=== PATIENT | female | born 1945 | race Two or more races ===

== ENCOUNTER 2016-09-27 14:15 | Outpatient (CLI) | payer MEDICARE, OTHER ==
[2016-09-27] MEDS ORDERED: ANASTROZOLE1 MG PO (15:16)
[2016-09-27] MEDS ORDERED: VITAMIN D1000 UNI1 ORAL (15:16)
[2016-09-27] MEDS ORDERED: DEXILANT60 MG ORAL (15:16)
[2016-09-27] MEDS ORDERED: LORAZEPAM0.5 MG ORAL (15:16)
[2016-09-27] MEDS ORDERED: FLONASE ALLERG9.9 ML NS (15:16)
[2016-09-27] MEDS ORDERED: ATORVASTATIN CA10 MG ORAL (15:16)
[2016-09-27] MEDS ORDERED: trintellix (15:16)
[2016-09-27] MEDS ORDERED: ATELVIA35 MG ORAL (15:16)
[2016-09-27] MEDS ORDERED: TOPROL XL100 MG ORAL (15:16)
[2016-09-27] MEDS ORDERED: CELEBREX200 MG ORAL (15:16)
[2016-09-27] MEDS ORDERED: QVAR7.3 GM INH (15:16)
--- NOTE | 2016-09-27 15:19 | GI Initial Consult Note ---
Giselle Mistry N.PTammy 09/27/16 1519: History of Present Illness General Date patient seen: Sep 27, 2016 Time patient seen: 14:00 Referring physician: LAVELLE Reason for Consultation: RECTAL BLEED Present Illness HPI 71 year old female patient presents today with c/o of rectal bleed with bloody stools, fatigue, and 7 lbs weight loss in the past few months. In addition the patient c/o of abdominal bloating. Patient has CEA elevation 5.6 during last draw x 6 months. Denies any changes in dietary habits. Home Meds Reported Medications Beclomethasone Dipropionate 40MCG Oral Inh (QVAR 40*) 7.3 Gm Aer.w.adap, 1 PUFF INH TWICE A DAY, GM 0 Refills 09/27/16 Risedronate Sodium (ATELVIA) 35 Mg Tablet.dr, 35 MG ORAL ONCE A WEEK, TAB 09/27/16 Fluticasone Propionate (Flonase Allergy Relief) 9.9 Ml [place].susp, 9.9 ML NS 09/27/16 Cholecalciferol (Vitamin D3)* (VITAMIN D*) 1,000 Unit Tablet, 5000 UNIT ORAL DAILY, #30 TAB 09/27/16 Metoprolol Succinate* (TOPROL XL*) 100 Mg Tab.er.24h, 100 MG ORAL DAILY, TAB 0 Refills 09/27/16 Atorvastatin Calcium* (LIPITOR*) 10 Mg Tablet, 10 MG ORAL BEDTIME, TAB 09/27/16 Anastrozole* (ARIMIDEX*) 1 Mg Tablet, 1 MG PO DAILY, TAB 09/27/16 Lorazepam* (LORAZEPAM*) 0.5 Mg Tablet, 0.5 MG ORAL THREE TIMES A DAY, TAB 09/27/16 [trintellix] No Conflict Check, 10 09/27/16 Dexlansoprazole (Dexilant) 60 Mg Grady.bp, 60 MG ORAL DAILY, CAP 09/27/16 Celecoxib* (CELEBREX*) 200 Mg Capsule, 200 MG ORAL DAILY, CAP 09/27/16 Med list reviewed/reconciled: Yes Patient History History Provided By: Patient PMH Narrative HTN GERD Depression Elevated Cholesterol Breast CA PSHx Splenectomy x 20 years Pertinent Family History: none Social History: Denies: alcohol use, drug use, other, smoking Review of Systems All Other Systems: negative except mentioned in HPI Physical Exam T 98.3 BP 123/65 P 59 95 RA WT 142.8 lbs Sp02 EP Interpretation: reviewed General Appearance: normal inspection, well appearing, no apparent distress, alert Head: normocephalic EENT: PERRL/EOMI, normal ENT inspection, TMs normal Neck: normal inspection, full range of motion, supple Respiratory: normal inspection, chest non-tender, lungs clear, normal breath sounds Cardiovascular: normal rate Gastrointestinal: normal inspection, non tender, soft, normal bowel sounds Rectal: normal exam, deferred Genitourinary: normal inspection, no CVA tenderness Musculoskeletal: normal inspection, back normal Neurologic: normal inspection, alert, oriented x3, responsive Psychiatric: normal inspection, judgement/insight normal, memory normal Skin: normal inspection, normal color, no rash, warm/dry, palpation normal, well hydrated, normal turgor Lymphatic: normal inspection, no adenopathy GI: Plan Problems: (1) Elevated CEA (2) HTN (hypertension) (3) GERD (gastroesophageal reflux disease) (4) Elevated cholesterol (5) Breast CA (6) Colonoscopy planned (7) Rectal bleed Plan EGD/colonoscopy scheduled 10/04/16. - CLD and TriLyte prep instructions given. repeat CEA on day of procedure. Seen with Dr. Schafer. Thank you for referring this patient, we will follow. RANDY SCHAFER 09/29/16 1027: History of Present Illness Present Illness Home Meds Reported Medications Beclomethasone Dipropionate 40MCG Oral Inh (QVAR 40*) 7.3 Gm Aer.w.adap, 1 PUFF INH TWICE A DAY, GM 0 Refills 09/27/16 Risedronate Sodium (ATELVIA) 35 Mg Tablet.dr, 35 MG ORAL ONCE A WEEK, TAB 09/27/16 Fluticasone Propionate (Flonase Allergy Relief) 9.9 Ml [place].susp, 9.9 ML NS 09/27/16 Cholecalciferol (Vitamin D3)* (VITAMIN D*) 1,000 Unit Tablet, 5000 UNIT ORAL DAILY, #30 TAB 09/27/16 Metoprolol Succinate* (TOPROL XL*) 100 Mg Tab.er.24h, 100 MG ORAL DAILY, TAB 0 Refills 09/27/16 Atorvastatin Calcium* (LIPITOR*) 10 Mg Tablet, 10 MG ORAL BEDTIME, TAB 09/27/16 Anastrozole* (ARIMIDEX*) 1 Mg Tablet, 1 MG PO DAILY, TAB 09/27/16 Lorazepam* (LORAZEPAM*) 0.5 Mg Tablet, 0.5 MG ORAL THREE TIMES A DAY, TAB 09/27/16 [trintellix] No Conflict Check, 10 09/27/16 Dexlansoprazole (Dexilant) 60 Mg Cap.bp, 60 MG ORAL DAILY, CAP 09/27/16 Celecoxib* (CELEBREX*) 200 Mg Capsule, 200 MG ORAL DAILY, CAP 09/27/16 GI: Plan Plan The patient was seen and examined at bedside and all new and available data was reviewed in the patients chart. I agree with the above findings, impression and plan. (Patient seen earlier today. Signature stamp does not reflect patient encounter time.). -Giselle Bob MD, N.P. Sep 27, 2016 15:19 RANDY SCHAFER Sep 29, 2016 10:27
== END 2016-09-27 15:00 | disposition home or self-care (01) ==
LOC: PAN 14:15
DX: K21.9 Gastro-esophageal reflux disease without esophagitis (principal); I10 Essential (primary) hypertension; E78.00 Pure hypercholesterolemia, unspecified; K62.5 Hemorrhage of anus and rectum; Z85.3 Personal history of malignant neoplasm of breast; R97.0 Elevated carcinoembryonic antigen [CEA]; Z90.81 Acquired absence of spleen
CPT/HCPCS: 99201

== ENCOUNTER 2016-10-04 09:10 | Day surgery (SDC) | payer MEDICARE, OTHER ==
[2016-10-04] VITALS (9 sets, daily range): BP systolic 124–150; BP diastolic 55–78
[~2016-10-04] VITALS: Ht 152.4 cm; Wt 66.7 kg
--- NOTE | 2016-10-04 06:02 | Anethesia Preoperative Eval ---
Anesthesia Pre-op PMH/ROS General Date of Evaluation: Oct 04, 2016 Time of Evaluation: 06:01 Anesthesiologist: levi ASA Score: ASA 3 Mallampati Score Class I : Soft palate, uvula, fauces, pillars visible Class II: Soft palate, uvula, fauces visible Class III: Soft palate, base of uvula visible Class IV: Only hard plate visible Mallampati Classification: Class II Surgeon: clayton Diagnosis: abnormal CEA Surgical Procedure: egd/colonoscopy Anesthesia History: none Family History: no anesthesia problems Allergies: Coded Allergies: No Known Allergies (Unverified , 10/03/16) Medications: see eMAR Past Medical History Cardiovascular: Reports: HTN Endocrine: Reports: DM Anesthesia Pre-op Phys. Exam Physician Exam Last Vital Signs Date Time Temp Pulse Resp B/P (MAP) Pulse Ox O2 Delivery O2 Flow Rate FiO2 10/04/16 09:55 98.4 62 18 143/71 98 Room Air Constitutional: NAD Neurologic: CN 2-12 intact Cardiovascular: RRR Respiratory: CTA Gastrointestinal: S/NT/ND Airway Exam Mallampati Score: Class II MO: full Neck: supple TMD: 2fb ROM: full Teeth: missing Anesthesia Pre-op A/P Studies Pre-op Studies: EKG - sinus bradycardia, nssttw abnl Risk Assessment & Plan Assessment: asa3 Plan: mac Status Change Before Surgery: No Pre-Antibiotics Drug: RAÚL Momin Oct 04, 2016 06:02
[~2016-10-04 09:10] MED LIST: ANASTROZOLE1 MG PO; ATELVIA35 MG ORAL; ATORVASTATIN CA10 MG ORAL; CELEBREX200 MG ORAL; DEXILANT60 MG ORAL; FLONASE ALLERG9.9 ML NS; LORAZEPAM0.5 MG ORAL; QVAR7.3 GM INH; TOPROL XL100 MG ORAL; VITAMIN D1000 UNI1 ORAL; trintellix
--- NOTE | 2016-10-04 10:20 | Pre-Procedure Note/Attestation ---
Pre-Procedure Note/Attestation Complete Prior to Procedure Planned Procedure: not applicable Procedure Narrative: esophagogastroduodenoscopy and colonoscopy Indications for Procedure Pre-Operative Diagnosis: elevated CEA, screening colon Attestation I attest that I discussed the nature of the procedure; its benefits; risks and complications; and alternatives (and the risks and benefits of such alternatives ), prior to the procedure, with the patient (or the patient's legal service representative). I attest that, if there was a reasonable possibility of needing a blood transfusion, the patient (or the patient's legal service representative) was given the [facility] standardized written summary, pursuant to the [place] Blood Safety Act ([place] Health and Safety Code # 1645, as amended). I attest that I re-evaluated the patient just prior to the surgery and that there has been no change in the patient's H&P, except as documented below: RANDY SABILLON Oct 04, 2016 10:20
--- NOTE | 2016-10-04 10:20 | Short Stay Surgery H&P ---
History of Present Illness History of Present Illness Chief Complaint see recent consult note HPI Sony Martinez is a 71 year old female who was admitted on for Abnormal Cea Patient History Allergies: Coded Allergies: No Known Allergies (Unverified , 10/03/16) PAST MEDICAL HISTORY: Past Surgeries: Social History: Medication History Scheduled Anastrozole* (Arimidex*), 1 MG PO DAILY, (Reported) Atorvastatin Calcium* (Lipitor*), 10 MG ORAL BEDTIME, (Reported) Celecoxib* (Celebrex*), 200 MG ORAL DAILY, (Reported) Cholecalciferol (Vitamin D3)* (Vitamin D*), 5,000 UNIT ORAL DAILY, (Reported) Metoprolol Succinate* (Toprol Xl*), 100 MG ORAL DAILY, (Reported) Discontinued Medications Beclomethasone Dipropionate 40MCG Oral Inh (Qvar 40*), 1 PUFF INH TWICE A DAY, ( Reported) Discontinued Reason: Pt stopped taking med Dexlansoprazole (Dexilant), 60 MG ORAL DAILY, (Reported) Discontinued Reason: Pt stopped taking med Fluticasone Propionate (Flonase Allergy Relief), 9.9 ML NS, (Reported) Discontinued Reason: Pt stopped taking med Lorazepam* (Lorazepam*), 0.5 MG ORAL THREE TIMES A DAY, (Reported) Discontinued Reason: Pt stopped taking med Risedronate Sodium (Atelvia), 35 MG ORAL ONCE A WEEK, (Reported) Discontinued Reason: Pt stopped taking med [trintellix], 10, (Reported) Discontinued Reason: Pt stopped taking med Physical Exam Vital Signs Last Vital Signs Date Time Temp Pulse Resp B/P (MAP) Pulse Ox O2 Delivery O2 Flow Rate FiO2 10/04/16 09:55 98.4 62 18 143/71 98 Room Air Plan Attestation Are the patient's medical conditions optimized for surgery? RANDY SABILLON Oct 04, 2016 10:20
[2016-10-04] MEDS ORDERED: Propofol 10mg/ml 20ml IV ONE (11:30)
[2016-10-04] MEDS ORDERED: Lidocaine 1% MPF 10mg/ml 5ml ONE (11:30)
--- NOTE | 2016-10-04 11:33 | Endoscopy Procedure Note ---
Endoscopy Procedure Note Indication for Procedure: elevated CEA Procedures Performed: EGD, colonoscopy Operative Findings/Diagnosis: gastritis, hemorrhoids Specimen: yes Pt Tolerated Procedure Well: Yes Estimated Blood Loss: none Anesthesiologist: mary Anesthesia: MAC Implant(s) used?: No 50 yrs or older w/o bx or poly: No 10yrs. F/U not recommended: Yes If not recommended, why?: Above average risk 10 yrs. F/U needed: Yes 18 years or older w/prev. colo: No RANDY SABILLON Oct 04, 2016 11:33
[2016-10-04] MEDS ORDERED: Hydromorphone 0.5mg/0.5ml inj IVP PRN (12:30)
[2016-10-04] MEDS ORDERED: Atropine Inj 1mg/10ml Syr IV PRN (12:30)
[2016-10-04] MEDS ORDERED: DiphenhydrAMINE 50mg/ml Inj IVP PRN (12:30)
[2016-10-04] MEDS ORDERED: Midazolam 2mg/2ml Inj IVP PRN (12:30)
[2016-10-04 13:07] LABS: BASOPHILS % (AUTO) 1.5 % (0.0-2.0); EOSINOPHILS % (AUTO) 1.9 % (0.0-3.0); LYMPHOCYTES % (AUTO) 44.3 % (20.0-45.0); MEAN CORPUSCULAR HEMOGLOBIN 32.4 PG (27.0-31.0); MEAN CORPUSCULAR HGB CONC 33.1 G/DL (32.0-36.0); MEAN CORPUSCULAR VOLUME 98 FL (80-99); MEAN PLATELET VOLUME 8.9 FL (6.5-10.1); MONOCYTES % (AUTO) 6.6 % (1.0-10.0); NEUTROPHILS % (AUTO) 45.7 % (45.0-75.0); PLATELET COUNT 247 K/UL (150-450); RED BLOOD COUNT 3.77 M/UL (4.20-5.40); RED CELL DISTRIBUTION WIDTH 11.1 % (11.6-14.8); WHITE BLOOD COUNT 9.2 K/UL (4.8-10.8)
[2016-10-04 13:33] LABS: ALANINE AMINOTRANSFERASE 15 U/L (3-33); ALBUMIN/GLOBULIN RATIO 1.4 (1.0-2.7); ANION GAP 10 (5-15); ASPARTATE AMINO TRANSFERASE 19 U/L (5-40); CALCIUM 8.4 mg/dL (8.6-10.2); CARBON DIOXIDE 26 mEQ/L (20-30); CHLORIDE 106 mEQ/L (98-107); CREATININE 0.7 mg/dL (0.5-0.9); HEMOLYSIS 5; POTASSIUM 3.9 mEQ/L (3.4-4.9); SODIUM 142 mEQ/L (135-145); TOTAL PROTEIN 5.9 g/dL (6.6-8.7)
--- NOTE | 2016-10-04 13:46 | Immediate Post-Op Evaluation ---
Immediate Post-Op Evalulation Immediate Post-Op Evalulation Procedure: egd/colonoscopy Date of Evaluation: Oct 04, 2016 Time of Evaluation: 12:47 IV Fluids: 0.9ns 650ml Blood Products: none Estimated Blood Loss: negligible Blood Pressure Systolic: 124 Blood Pressure Diastolic: 78 Pulse Rate: 57 Respiratory Rate: 18 O2 Sat by Pulse Oximetry: 100 Temperature (Fahrenheit): 97.2 Pain Score (1-10): 0 Nausea: No Vomiting: No Complications none Patient Status: awake, reacts, patent Hydration Status: adequate Drug: RAÚL Momin Oct 04, 2016 13:46
--- NOTE | 2016-10-04 13:47 | 48 Hour Post Anesthesia Eval ---
Post Anesthesia Evaluation Procedure: egd/colonoscopy Date of Evaluation: Oct 04, 2016 Time of Evaluation: 13:46 Blood Pressure Systolic: 125 0: 78 Pulse Rate: 56 Respiratory Rate: 18 Temperature (Fahrenheit): 97.2 O2 Sat by Pulse Oximetry: 100 Airway: patent Nausea: No Vomiting: No Pain Intensity: 0 Hydration Status: adequate Cardiopulmonary Status: stable Mental Status/LOC: patient returned to baseline Post-Anesthesia Complications: none Follow-up care needed: N/A RAÚL PEÑA Oct 04, 2016 13:47
--- NOTE | 2016-10-05 06:15 | Procedure Note ---
DATE OF PROCEDURE: 10/04/2016 SURGEON: Demetrius Schafer M.D. PROCEDURE: Upper endoscopy with biopsy and colonoscopy with biopsy and snare polypectomy. ANESTHESIOLOGIST: Elle Hare M.D. INSTRUMENT: Olympus adult flexible upper endoscope and colonoscope. INDICATION: Elevated CEA. REASON FOR PROCEDURE: The procedure, risks, benefits, and possible consequences, including hemorrhage, aspiration, perforation and infection, and alternative treatments, were explained to the patient/legal guardian by Dr. Demetrius Schafer and the patient/legal guardian understood and accepted these risks. DESCRIPTION OF PROCEDURE: After informed consent was obtained and the patient was adequately sedated, Olympus upper endoscope was advanced from mouth into the second portion of duodenum and retroflexion was performed in the stomach. The patient had diffuse gastritis. Random biopsy from antrum of the stomach was obtained to rule out H. pylori infection. Otherwise, the rest of the upper endoscopic examination grossly within normal limits. At this time, the upper endoscope was retrieved and the patient was turned over for colonoscopy. First, a rectal exam was performed, which was positive for internal hemorrhoids. Then, the scope was advanced from the rectum into the cecum, documented by appendiceal orifice, ileocecal valve, and right upper quadrant palpation. Quality of prep was adequate. This was a very challenging and prolonged procedure. The patient had 15 polyps that we took out and I am pretty sure there are more polyps in this colonoscopy examination. We tried to take the big ones out. The patient had one in the cecum, which was removed with the cold biopsy forceps technique, two in the ascending colon, 7 in the transverse colon, two in the descending colon, two in the sigmoid colon, and one very large one in the rectosigmoid area. Most of these polyps were large, some of them were over 1 cm, and we had to actually cut the polyps in half or even in thirds to be able to be pass them through the scope. Then, there is a very large area of the leaking polyp in the rectosigmoid area about 20 cm from the anal verge. This polyp was over 3 to 4 cm in length and very villous looking, difficult to completely resect one, polyp. Given this procedure was already significantly prolonged, we decided to remove some of the pieces of this polyp. We also tattooed the most distal portion of this polyp with a tattoo for future references. Retroflexion of rectum showed evidence of internal hemorrhoids. SUMMARY OF FINDINGS: Numerous colonic polyps, see above for details. PLAN: Followup pathology. or adenocarcinoma in situ to it or any high-grade dysplasia, we will recommend repeat colonoscopy or resection. If there is any evidence of cancer in this polyp, I will closely recommend resection. I had a long discussion with the daughter of the patient after the procedure, given them option. We are waiting for the biopsy to come back. Again if the biopsies were consistent with cancer, eventually the patient needs surgery. Otherwise, options would be surgery for complete resection versus multiple colonoscopies with piecemeal removal of this polyp. I want to thank, Dr. Demetrius Arellano, for this kind referral. Demetrius Schafer M.D. DR: JONH JOB#: [id number] CC: Demetrius Arellano M.D.; Fax#: [phone]
--- NOTE | 2016-10-05 13:43 | Cardiology Report ---
APPROVED REPORT EKG Measurement Heart [id number] MI [id number] Sinus bradycardia Moderate voltage criteria for LVH, may be normal variant Nonspecific ST and T wave abnormality Abnormal ECG
== END 2016-10-04 13:35 | disposition home or self-care (01) ==
LOC: GAS 09:10
DX: R97.0 Elevated carcinoembryonic antigen [CEA] (principal); D12.7 Benign neoplasm of rectosigmoid junction; D12.5 Benign neoplasm of sigmoid colon; D12.0 Benign neoplasm of cecum; D12.4 Benign neoplasm of descending colon; D12.3 Benign neoplasm of transverse colon; K64.8 Other hemorrhoids; K29.70 Gastritis, unspecified, without bleeding; I10 Essential (primary) hypertension; E11.9 Type 2 diabetes mellitus without complications; R00.1 Bradycardia, unspecified; Z79.899 Other long term (current) drug therapy
CPT/HCPCS: 36415; 43239; 45380; 45381; 45385; 80053; 82378; 85025; 93005; J2704; 94003; 94150

== ENCOUNTER 2018-02-25 13:30 | Outpatient (CLI) | payer MEDICARE, OTHER ==
[2018-02-26 13:32] VITALS: BP 108/61
--- NOTE | 2018-02-26 15:29 | GI Initial Consult Note ---
History of Present Illness General Date patient seen: Feb 26, 2018 Time patient seen: 15:23 Referring physician: LAVELLE Reason for Consultation: Abdominal pain Present Illness HPI 72-year-old patient who presents today with left-sided abdominal pain complaint of weight loss. The patient had approximate weight loss of 15 pounds within the past 6 months. The patient had a EGD colonoscopy performed back in 2017, noted with numerous amounts of colonic polyps. Pathology reported sessile serrated adenoma, bilious adenoma with focal high-grade dysplasia throughout the colon. No changes in dietary habits. No signs of abuse or neglect. Patient is not fall risk. Home Meds Reported Medications Cholecalciferol (Vitamin D3)* (VITAMIN D*) 1,000 Unit Tablet, 5000 UNIT ORAL DAILY, #30 TAB 09/27/16 Metoprolol Succinate* (TOPROL XL*) 100 Mg Tab.er.24h, 100 MG ORAL DAILY, TAB 0 Refills 09/27/16 Atorvastatin Calcium* (LIPITOR*) 10 Mg Tablet, 10 MG ORAL BEDTIME, TAB 09/27/16 Anastrozole* (ARIMIDEX*) 1 Mg Tablet, 1 MG PO DAILY, TAB 09/27/16 Celecoxib* (CELEBREX*) 200 Mg Capsule, 200 MG ORAL DAILY, CAP 09/27/16 Med list reviewed/reconciled: Yes Allergies: Coded Allergies: No Known Allergies (Unverified , 10/03/16) Patient History History Provided By: Patient, Medical Record PMH Narrative HTN GERD Depression Elevated Cholesterol Breast CA PSHx Splenectomy x 20 years Pertinent Family History: none Social History: Denies: smoking, alcohol use, drug use, other Review of Systems All Other Systems: negative except mentioned in HPI Physical Exam Vital Signs Date Time Temp Pulse Resp B/P (MAP) Pulse Ox O2 Delivery O2 Flow Rate FiO2 02/26/18 13:32 98.2 68 108/61 97 Sp02 EP Interpretation: reviewed, normal General Appearance: well appearing, no apparent distress, alert Head: normocephalic EENT: PERRL/EOMI, normal ENT inspection Neck: supple Respiratory: normal breath sounds, no respiratory distress Cardiovascular: normal rate Gastrointestinal: normal inspection, non tender, soft, normal bowel sounds, non -distended Rectal: deferred Genitourinary: no CVA tenderness Musculoskeletal: normal inspection, back normal Neurologic: normal inspection, alert, oriented x3, responsive Psychiatric: normal inspection, judgement/insight normal, memory normal Skin: normal inspection, normal color, no rash, warm/dry, palpation normal, well hydrated Lymphatic: normal inspection, no adenopathy GI: Plan Problems: (1) Weight loss (2) Colonoscopy planned (3) Elevated CEA (4) GERD (gastroesophageal reflux disease) Plan EGD/colonoscopy to be scheduled February 27, 2018. - CLD & (Nulytely/Suprep/Movi-Prep) prep instructions given and acknowledged by patient. - NPO @ [place] day prior procedure explained. We will also draw labs and perform a millan CT procedure day Will follow with additional recs post procedure. Seen with Dr. Schafer. Thank you for this patient referral. The patient was seen and examined at bedside and all new and available data was reviewed in the patients chart. I agree with the above findings, impression and plan. (Patient seen earlier today. Signature stamp does not reflect patient encounter time.). - MD Fidelia JacobsonClearsky Rehabilitation Hospital Of AvondaleLex CUSTOMS DIRECTOR Feb 26, 2018 15:29
== END 2018-02-25 14:00 | disposition home or self-care (01) ==
LOC: PAN 13:30
DX: R10.9 Unspecified abdominal pain (principal); R63.4 Abnormal weight loss; R97.0 Elevated carcinoembryonic antigen [CEA]; K21.9 Gastro-esophageal reflux disease without esophagitis; I10 Essential (primary) hypertension; F32.9 Major depressive disorder, single episode, unspecified; Z85.3 Personal history of malignant neoplasm of breast; D12.6 Benign neoplasm of colon, unspecified
CPT/HCPCS: 99212

== ENCOUNTER 2018-02-27 09:49 | Day surgery (SDC) | payer MEDICARE, OTHER ==
[2018-02-27] VITALS (9 sets, daily range): BP systolic 111–141; BP diastolic 56–70
[~2018-02-27] VITALS: Ht 152.4 cm; Wt 58.5 kg
[2018-02-27] MEDS ORDERED: ZOLOFT50 MG ORAL (10:20)
[2018-02-27 10:53] LABS: BASOPHILS % (AUTO) 0.7 % (0.0-2.0); EOSINOPHILS % (AUTO) 0.4 % (0.0-3.0); HEMATOCRIT 29.4 % (37.0-47.0); HEMOGLOBIN 9.4 G/DL (12.0-16.0); LYMPHOCYTES % (AUTO) 31.2 % (20.0-45.0); MEAN CORPUSCULAR VOLUME 91 FL (80-99); MONOCYTES % (AUTO) 10.6 % (1.0-10.0); NEUTROPHILS % (AUTO) 57.1 % (45.0-75.0); PLATELET COUNT 402 K/UL (150-450); RED BLOOD COUNT 3.22 M/UL (4.20-5.40); RED CELL DISTRIBUTION WIDTH 12.4 % (11.6-14.8); WHITE BLOOD COUNT 11.9 K/UL (4.8-10.8)
[2018-02-27] MEDS ORDERED: Lidocaine 1% MPF 10mg/ml 5ml ONE (11:00)
[2018-02-27] MEDS ORDERED: Midazolam 2mg/2ml Inj ONE (11:00)
[2018-02-27] MEDS ORDERED: Propofol 200mg/20ml IV ONE (11:00)
[2018-02-27 11:06] LABS: ANION GAP 12 mmol/L (5-15); BLOOD UREA NITROGEN 20 mg/dL (7-18); CALCIUM 9.3 MG/DL (8.5-10.1); CARBON DIOXIDE 23 MMOL/L (21-32); CHLORIDE 107 MMOL/L (98-107); CREATININE 1.2 MG/DL (0.55-1.30); POTASSIUM 3.8 MMOL/L (3.5-5.1); SODIUM 142 MMOL/L (136-145)
[2018-02-27 11:11] LABS: ALANINE AMINOTRANSFERASE 35 U/L (12-78); ALBUMIN 2.3 G/DL (3.4-5.0); ALBUMIN/GLOBULIN RATIO 0.5 (1.0-2.7); ALKALINE PHOSPHATASE 61 U/L (46-116); ASPARTATE AMINO TRANSFERASE 21 U/L (15-37); BILIRUBIN,TOTAL 0.7 MG/DL (0.2-1.0)
--- NOTE | 2018-02-27 11:26 | Anethesia Preoperative Eval ---
Anesthesia Pre-op PMH/ROS General Date of Evaluation: Feb 27, 2018 Time of Evaluation: 10:50 Anesthesiologist: Alexander ASA Score: ASA 2 Mallampati Score Class I : Soft palate, uvula, fauces, pillars visible Class II: Soft palate, uvula, fauces visible Class III: Soft palate, base of uvula visible Class IV: Only hard plate visible Mallampati Classification: Class II Surgeon: Gilmar Diagnosis: colon polyps Surgical Procedure: EGD/Colonoscopy Anesthesia History: none Family History: no anesthesia problems Allergies: Coded Allergies: No Known Allergies (Unverified , 02/27/18) Medications: see eMAR Patient NPO?: Yes NPO Date: Feb 26, 2018 NPO Time: 21:00 Past Medical History Cardiovascular: Reports: HTN, other - high lipids Pulmonary: Reports: asthma, COPD, ARVIND, other Gastrointestinal/Genitourinary: Reports: GERD, other - splenoctomy 1998 Neurologic/Psychiatric: Reports: depression/anxiety Endocrine: Denies: DM, hypothyroidism, steroids, other HEENT: Reports: cataract (L), cataract (R) Hematology/Immune: Reports: other - right breast CA - lumpectomy done Musculoskeletal/Integumentary: Reports: OA, DJD Anesthesia Pre-op Phys. Exam Physician Exam Last Vital Signs Date Time Temp Pulse Resp B/P (MAP) Pulse Ox O2 Delivery O2 Flow Rate FiO2 02/27/18 10:40 97.8 18 18 126/59 97 Room Air Constitutional: NAD Neurologic: CN 2-12 intact Cardiovascular: RRR Respiratory: CTA Gastrointestinal: S/NT/ND Airway Exam Mallampati Score: Class II MO: full ROM: full Teeth: intact Dentures: no upper, no lower Anesthesia Pre-op A/P Labs Hematology Test 02/27/18 10:40 White Blood Count 11.9 K/UL (4.8-10.8) H Red Blood Count 3.22 M/UL (4.20-5.40) L Hemoglobin 9.4 G/DL (12.0-16.0) L Hematocrit 29.4 % (37.0-47.0) L Mean Corpuscular Volume 91 FL (80-99) Mean Corpuscular Hemoglobin 29.3 PG (27.0-31.0) Mean Corpuscular Hemoglobin Concent 32.1 G/DL (32.0-36.0) Red Cell Distribution Width 12.4 % (11.6-14.8) Platelet Count 402 K/UL (150-450) Mean Platelet Volume 7.6 FL (6.5-10.1) Neutrophils (%) (Auto) 57.1 % (45.0-75.0) Lymphocytes (%) (Auto) 31.2 % (20.0-45.0) Monocytes (%) (Auto) 10.6 % (1.0-10.0) H Eosinophils (%) (Auto) 0.4 % (0.0-3.0) Basophils (%) (Auto) 0.7 % (0.0-2.0) Chemistry Test 02/27/18 10:40 Sodium Level 142 MMOL/L (136-145) Potassium Level 3.8 MMOL/L (3.5-5.1) Chloride Level 107 MMOL/L (98-107) Carbon Dioxide Level 23 MMOL/L (21-32) Anion Gap 12 mmol/L (5-15) Blood Urea Nitrogen 20 mg/dL (7-18) H Creatinine 1.2 MG/DL (0.55-1.30) Estimat Glomerular Filtration Rate mL/min (>60) Glucose Level 77 MG/DL (74-106) Calcium Level 9.3 MG/DL (8.5-10.1) Total Bilirubin 0.7 MG/DL (0.2-1.0) Aspartate Amino Transf (AST/SGOT) 21 U/L (15-37) Alanine Aminotransferase (ALT/SGPT) 35 U/L (12-78) Alkaline Phosphatase 61 U/L (46-116) Total Protein 7.1 G/DL (6.4-8.2) Albumin 2.3 G/DL (3.4-5.0) L Globulin 4.8 g/dL Albumin/Globulin Ratio 0.5 (1.0-2.7) L Carcinoembryonic Antigen Pending Studies Pre-op Studies: EKG - NSB 58 bpm Risk Assessment & Plan Assessment: A&Ox4 Plan: MAC Status Change Before Surgery: No Pre-Antibiotics Given Within 1 Hr of Incision: No Susan Munoz CRNA Feb 27, 2018 11:26
--- NOTE | 2018-02-27 11:29 | Immediate Post-Op Evaluation ---
Immediate Post-Op Evalulation Immediate Post-Op Evalulation Procedure: EGD/Colonoscopy Date of Evaluation: Feb 27, 2018 Time of Evaluation: 11:28 IV Fluids: NSS 250 ml Blood Products: 0 Estimated Blood Loss: 0 Urinary Output: 0 Blood Pressure Systolic: 141 Blood Pressure Diastolic: 57 Pulse Rate: 61 Respiratory Rate: 20 O2 Sat by Pulse Oximetry: 99 Temperature (Fahrenheit): 98.1 Pain Score (1-10): 0 Nausea: No Vomiting: No Complications none noted Patient Status: awake, reacts Hydration Status: adequate Given Within 1 Hr of Incision: No - none per surgeon Susan Munoz CRNA Feb 27, 2018 11:29
--- NOTE | 2018-02-27 11:29 | 48 Hour Post Anesthesia Eval ---
Post Anesthesia Evaluation Procedure: EGD/Colonoscopy Date of Evaluation: Feb 27, 2018 Time of Evaluation: 13:31 Blood Pressure Systolic: 117 0: 70 Pulse Rate: 65 Respiratory Rate: 15 Temperature (Fahrenheit): 97.9 O2 Sat by Pulse Oximetry: 100 Airway: patent Nausea: No Vomiting: No Pain Intensity: 0 Hydration Status: adequate Cardiopulmonary Status: WNL Mental Status/LOC: patient returned to baseline Follow-up care needed: patient intructions given Susan Munoz CRNA Feb 27, 2018 11:29
[2018-02-27] MEDS ORDERED: fentaNYL 100 mcg/2 mL IV PRN (11:30)
[2018-02-27] MEDS ORDERED: Hydromorphone 0.5mg/0.5ml inj IVP PRN (11:30)
--- NOTE | 2018-02-27 11:49 | Endoscopy Procedure Note ---
Endoscopy Procedure Note General Indication for Procedure: colon polyp, wt loss Procedures Performed: EGD, colonoscopy Operative Findings/Diagnosis: large colon polyp Specimen: yes Pt Tolerated Procedure Well: Yes Estimated Blood Loss: none Anesthesia Anesthesiologist: birgit Anesthesia: MAC Inserted Devices Implant(s) used?: No Quality Quality of Bowel Preparation: Poor Did scope reach the cecum?: Yes Was there any complications?: No GI Core Measures 50 yrs or older w/o bx or poly: No 10yrs. F/U not recommended: Yes If not recommended, why?: Above average risk 10 yrs. F/U needed: Yes 18 years or older w/prev. colo: Yes <3yrs. since last colonoscopy: Yes Med reason:<3 yrs.: Piecemeal removal-Adenoma Demetrius Schafer MD Feb 27, 2018 11:49
--- NOTE | 2018-02-27 15:15 | Procedure Note ---
DATE OF PROCEDURE: 02/27/2018 SURGEON: Demetrius Schafer M.D. PROCEDURE: Colonoscopy with biopsy and tattooing and snare polypectomy and endoscopy with biopsy. 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 INSTRUMENT: Olympus adult flexible upper endoscope and colonoscope INDICATION: Abdominal pain, weight loss, and history of colonic polyps. REASON FOR PROCEDURE: The procedure, risks, benefits, and possible consequences, including hemorrhage, aspiration, perforation and infection, and alternative treatments, were explained to the patient/legal guardian by Dr. Demetrius Schafer and the patient/legal guardian understood and accepted these risks. PROCEDURE IN DETAIL: After informed consent was obtained and the patient was adequately sedated, Olympus upper endoscope was advanced from the mouth into the second portion of the duodenum and retroflexion was performed in the stomach. The patient had diffuse gastritis. Random biopsy from antrum was obtained to rule out H. pylori infection. Otherwise, the rest of the examination grossly within normal limits. At this time, the upper endoscope was retrieved. The patient was turned over for colonoscopy. First, rectal exam was performed, which was positive for internal hemorrhoids. Then, the scope was the rectum into the cecum documented by appendiceal orifice, ileocecal valve, and right upper quadrant palpation. Quality of prep was very poor. The patient had two diminutive polyps in the transverse colon, removed with the cold biopsy forceps technique. There was a sessile polyp measured roughly about 6 mm in the sigmoid, which was removed with the hot snare polypectomy technique. The patient had a large polyp/mass at about 14 cm from the anal verge expanding all the way to about maybe about 19 cm. This polyp that we saw in last colonoscopy and we wanted the patient to have it surgically removed. This polyp now is turning to become larger and possibly transform into malignancy. It is not possible to remove this polyp endoscopically. We biopsied the polyp and also tattooed the most distal part for future surgeries. The patient also had some scattered diverticulosis in the left colon. The patient also had evidence of internal hemorrhoids seen on retroflexion in the rectum. SUMMARY OF FINDINGS: 1. Gastritis, status post biopsy. 2. Poor colonic prep, so making the examination limited. 3. Two polyps in the transverse colon, one in the sigmoid. 4. One polyp in the rectosigmoid area at about 14 cm from the anal verge, very large polyp, unresectable endoscopically, possibly already turned into malignancy status post biopsy and tattooing. 5. Diverticulosis. 6. Internal hemorrhoids RECOMMENDATIONS: 1. Follow up biopsy results. 2. The patient will get a CT of the abdomen and pelvis today to rule out metastasize. We also going to order CEA level today. The patient is to be seen by a surgeon for possible partial colectomy. Demetrius Schafer M.D. DR: JOSE JOB#: [id number] CC:
--- NOTE | 2018-03-01 16:03 | Cardiology Report ---
APPROVED REPORT EKG Measurement Heart [id number] Sinus bradycardia Minimal voltage criteria for LVH, may be normal variant Borderline ECG
--- NOTE | 2018-03-08 09:59 | Pre-Procedure Note/Attestation ---
Pre-Procedure Note/Attestation Complete Prior to Procedure Planned Procedure: not applicable Procedure Narrative: EGD and colonoscopy Indications for Procedure Pre-Operative Diagnosis: abd pain, large colon polyp Attestation I attest that I discussed the nature of the procedure; its benefits; risks and complications; and alternatives (and the risks and benefits of such alternatives ), prior to the procedure, with the patient (or the patient's legal dermatology sales representative). I attest that, if there was a reasonable possibility of needing a blood transfusion, the patient (or the patient's legal dermatology sales representative) was given the [facility] standardized written summary, pursuant to the [place] Blood Safety Act ([place] Health and Safety Code # 1645, as amended). I attest that I re-evaluated the patient just prior to the surgery and that there has been no change in the patient's H&P, except as documented below: Demetrius Schafer MD Mar 08, 2018 09:59
--- NOTE | 2018-03-08 10:00 | Short Stay Surgery H&P ---
History of Present Illness History of Present Illness Chief Complaint see recent office note HPI Sony Martinez is a 72 year old female who was admitted on for Colon Polyps, Weight Loss Patient History Allergies: Coded Allergies: No Known Allergies (Unverified , 02/27/18) Medication History Scheduled Anastrozole* (Arimidex*), 1 MG PO DAILY, (Reported) Atorvastatin Calcium* (Lipitor*), 10 MG ORAL BEDTIME, (Reported) Celecoxib* (Celebrex*), 200 MG ORAL DAILY, (Reported) Cholecalciferol (Vitamin D3)* (Vitamin D*), 5,000 UNIT ORAL DAILY, (Reported) Metoprolol Succinate* (Toprol Xl*), 100 MG ORAL DAILY, (Reported) Sertraline Hcl* (Zoloft*), 75 MG ORAL DAILY, (Reported) Physical Exam Vital Signs Last Vital Signs Date Time Temp Pulse Resp B/P (MAP) Pulse Ox O2 Delivery O2 Flow Rate FiO2 02/27/18 13:32 65 15 100 02/27/18 13:05 117/60 Room Air 02/27/18 12:35 98.0 02/27/18 12:00 3 Plan Attestation Are the patient's medical conditions optimized for surgery? Demetrius Schafer MD Mar 08, 2018 10:00
== END 2018-02-27 13:05 | disposition home or self-care (01) ==
LOC: GAS 09:49
DX: K29.50 Unspecified chronic gastritis without bleeding (principal); R63.4 Abnormal weight loss; D12.7 Benign neoplasm of rectosigmoid junction; D12.3 Benign neoplasm of transverse colon; K63.5 Polyp of colon; K64.8 Other hemorrhoids; K57.30 Diverticulosis of large intestine without perforation or abscess without bleeding; Z86.010 Personal history of colon polyps; I10 Essential (primary) hypertension; E78.5 Hyperlipidemia, unspecified; J44.9 Chronic obstructive pulmonary disease, unspecified; G47.33 Obstructive sleep apnea (adult) (pediatric); K21.9 Gastro-esophageal reflux disease without esophagitis; F32.9 Major depressive disorder, single episode, unspecified; F41.9 Anxiety disorder, unspecified; M19.90 Unspecified osteoarthritis, unspecified site; Z85.3 Personal history of malignant neoplasm of breast; Z90.81 Acquired absence of spleen
CPT/HCPCS: 36415; 43239; 45380; 45381; 45385; 80053; 82378; 85025; 93005; J2250; J2704; 94003; 94150